=== PATIENT | female | born 1945 | race Caucasian/White ===

== ENCOUNTER 2016-11-22 16:27 | Observation (INO) ==
[2016-11-22] MEDS ORDERED: 0.9 % Sodium Chloride 1,000 ML IVC ONE (16:29)
[2016-11-22] MEDS ORDERED: Ondansetron 4 MG/2 ML VIAL IV STA (16:29)
[2016-11-22 16:59] LABS: Basophils % 0.2 %; Eosinophils % 0.5 %; Hematocrit 33.7 % (35.3-44.9); Hemoglobin 10.8 g/dL (11.5-15.4); Immature Granulocytes % 0.2 % (0-4); Lymphocytes # 0.5 K/mcL (0.6-4.6); Lymphocytes % 8.8 %; Mean Corpuscular Hemoglobin 29.3 pg (28.0-33.3); Mean Corpuscular Volume 91.3 fL (83.0-100.0); Mean Platelet Volume 10.1 fL (9.4-12.4); Monocytes # 0.4 K/mcL (0.0-1.3); Monocytes % 6.8 %; Neutrophils # 4.6 K/mcL (1.6-8.9); Platelet Count 201 K/mcL (140-400); Red Blood Count 3.69 M/mcL (3.82-4.97); Red Cell Distribution Width 13.6 % (11.5-14.5); Segmented Neutrophils % 83.5 %
--- NOTE | 2016-11-22 17:01 | Emergency Department Note ---
Disposition Clinical Impression: Gastroenteritis Disposition: Admitted As Inpatient Condition: Fair Referrals: NO,PCP [Primary Care Provider] - Forms: ED Satisfaction Letter Time of Disposition: 19:41 ([facility]) Nausea/Vomiting/Diarrhea HPI - General Chief complaint: ED Nausea/Vomiting/Diarrhea Stated complaint: Vomiting and diarrhea Time Seen by Provider: 11/22/16 16:29 Source: patient Mode of arrival: ambulatory Limitations: no limitations Nursing Notes Reviewed: Yes Vital Signs Reviewed: Yes - History of Present Illness HPI Narrative: Elderly female sent from a local urgent care acute gastroenteritis possible dehydration patient's been unable to keep anything down for the past day she has not taken her medications in the past couple days patient tells me she has nausea vomiting diarrhea weakness feels that she has been That she denies no blurred vision double vision or loss vision she denies any chest pain chest pressure palpitations patient admits she is diabetic and has not been eating patient tells me she has has history of hypertension patient states she had 15-20 diarrheal stools just within the past 24 hours and she has been sent to the urgent care for dehydration from her family physician who had a rotator cuff patient states that she is having no abdominal pain or discomfort she denies any nausea at this present time she had nausea and vomiting earlier patient states that she has not been medicated hematemesis she denies any blurred vision double vision loss she said nothing seems to relieve her discomfort patient has a call us. Objective patient has a history of stage IV renal failure kidney function 20% diabetes and cardiac history as well as hyperlipidemia and high cholesterol; coronary artery bypass graft pacemaker placement cholecystectomy and endoscopic surgery hysterectomy stent placement in I smoking or alcohol as result patient was not feeling any better after evaluated the urgent care sent to the ER for evaluation Pt Subjective Complaint: nausea, vomiting, diarrhea Onset (ago): day(s) (2) Description of emesis: watery Number of episodes of emesis: 3 Description of Diarrhea: water, mucous Number of episodes: 20 Associated Abdominal Pain: Yes (cramping) Severity: none Severity scale (1-10): 0 Quality: cramping Consistency: intermittent Improves with: nothing Worsens with: vomiting, movement Associated symptoms: Reports: myalgias, loss of appetite, malaise, nausea/ vomiting, weakness. Denies: chest pain, cough, diaphoresis, fever/chills, headaches, dysuria, shortness of breath, syncope - Related Data Home Medications Medication Instructions Recorded Confirmed Aspirin [Ecotrin] 325 mg PO DAILY 11/22/16 11/22/16 Atorvastatin [Lipitor] 80 mg PO HS 11/22/16 11/22/16 Biotin 1,000 mcg PO BID 11/22/16 11/22/16 Cholecalciferol (Vitamin D3) 1,000 unit PO 1-3XD 11/22/16 11/22/16 [Vitamin D] Clopidogrel [Plavix] 75 mg PO DAILY 11/22/16 11/22/16 Fenofibrate 150 mg PO DAILY 11/22/16 11/22/16 Furosemide [Lasix] 40 mg PO BID 11/22/16 11/22/16 Gabapentin 300 mg PO DAILY 11/22/16 11/22/16 HydrALAZINE 50 mg PO BID 11/22/16 11/22/16 Hyoscyamine 0.125 mg PO PRN PRN 11/22/16 11/22/16 Insulin ASPART [Novolog] 0 unit SQ [facility] 11/22/16 11/22/16 Insulin Glargine [Lantus] 50 unit SQ HS 11/22/16 11/22/16 Iron 65 mg PO DAILY 11/22/16 11/22/16 Isosorbide DInitrate [Isosorbide 20 mg PO 1-2XD 11/22/16 11/22/16 Dinitrate] Lisinopril [Zestril] 30 mg PO DAILY 11/22/16 11/22/16 Mecobalamin [B-12] 1,000 mcg PO DAILY 11/22/16 11/22/16 Metoprolol 100 mg PO DAILY 11/22/16 11/22/16 Ranitidine HCl 150 mg PO 1-2XD 11/22/16 11/22/16 Saxagliptin HCl [Onglyza] 5 mg PO DAILY 11/22/16 11/22/16 Vitamin E 400 unit PO DAILY 11/22/16 11/22/16 Allergies Allergy/AdvReac Type Severity Reaction Status Date / Time olmesartan [From Benicar] Allergy Mild Gastrointestinal Verified 11/22/16 17:04 Upset Labetalol Allergy Gastrointestinal Verified 11/22/16 17:04 Upset All systems ED: reviewed and negative except as stated. Constitutional: Reports: weakness. Denies: fever, chills Eyes: Denies: vision change ENT ED: Denies: ear pain, throat pain Cardiovascular: Denies: chest pain, palpitations Respiratory: Denies: cough, dyspnea Gastrointestinal: Reports: abdominal pain, nausea, vomiting, diarrhea Genitourinary: Denies: urgency, dysuria Musculoskeletal: Denies: back pain Integumentary: Denies: abrasion Neurological: Denies: headache Psychiatric: Denies: anxiety Endocrine: Reports: fatigue Hematological/Lymphatic: Denies: easy bleeding Allergic/Immunologic: Denies: facial swelling Past Medical History - Past Medical History Attestation: Yes The following information was validated with the patient. Source: patient, old records reviewed, nursing notes reviewed Medical history: Reports: diabetes, hypertension, other Psychiatric history: Reports: no psych history - Social History Smoking Status: Never smoker Smokeless Tobacco Status: No Alcohol use: Reports: none Drug use: Reports: none Physical Exam - General Limitations: no limitations General appearance: alert, in no apparent distress, lethargic (ashen slight juandice hue) - Head Head exam: atraumatic, normocephalic, normal inspection - Eye Eye exam: Present: normal appearance, PERRL, EOMI - ENT ENT exam: normal exam, normal oropharynx, mucous membranes dry, normal external ear exam - Neck Neck exam: Present: normal inspection, full ROM, trachea midline - Chest Chest inspection: Present: normal inspection, symmetric chest wall rise - Respiratory Respiratory exam: Present: normal lung sounds bilaterally - Cardiovascular Cardiovascular exam: Present: regular rate, normal rhythm, normal heart sounds - Abdominal Exam Abdominal exam: Present: soft, Non-Tender, distention, hyperactive bowel sounds - Extremities Exam Extremities exam: Present: normal inspection, full ROM, normal capillary refill. Absent: pedal edema - Expanded Lower Extremity Exam Neurovascular/Tendon exam: Present: normal capillary refill, normal fine/light touch Gait: observed and normal - Back Exam Back exam: Present: normal inspection, full ROM. Absent: muscle spasm - Neurological Exam Neurological exam: Present: alert, oriented X3, CN II-XII intact - Psychiatric Psychiatric exam: Present: flat affect - Skin Skin exam: Present: warm, dry, intact, normal color Course Course Narrative: Agency examine patient was given IV fluids she did seem to feel a little bit better after the IV fluids blood pressure was 212/63 was given Catapres she states she was feeling better blood pressure. vs 233/58 patient was given an additional dose of Catapres Vital Signs Temperature 99.0 F 11/22/16 16:30 Pulse Rate 72 11/22/16 16:30 Respiratory Rate 18 11/22/16 16:30 Blood Pressure 194/63 11/22/16 16:30 O2 Sat by Pulse Oximetry 96 11/22/16 16:30 Temperature 99.0 F 11/22/16 16:36 Pulse Rate 72 11/22/16 16:36 Respiratory Rate 18 11/22/16 16:36 Blood Pressure 194/63 11/22/16 16:36 O2 Sat by Pulse Oximetry 96 11/22/16 16:36 Oxygen Delivery Oxygen Delivery Room Air Nausea/Vomiting/Diarrhea - MDM Narrative Medical decision making narrative: htn lillness and weakness due to dehydration pt noncompliant forthe past few days not willie her meds - Differential Diagnosis Likely: gastroenteritis - Medical Records Medical records reviewed: Yes I reviewed the patient's medical records. - Lab Data Lab results reviewed: Yes I reviewed the patient's lab results. Result diagrams: 11/22/16 16:51 11/22/16 16:51 Lab Results 11/22/16 11/22/16 11/22/16 Range/Units 16:29 16:51 16:51 WBC 5.6 (4.3-11.1) K/mcL RBC 3.69 L (3.82-4.97) M/mcL Hgb 10.8 L (11.5-15.4) g/dL Hct 33.7 L (35.3-44.9) % MCV 91.3 (83.0-100.0) fL MCH 29.3 (28.0-33.3) pg MCHC 32.0 (31.6-35.5) g/dL RDW 13.6 (11.5-14.5) % Plt Count 201 (140-400) K/mcL MPV 10.1 (9.4-12.4) fL Immature Gran % 0.2 (0-4) % Seg Neutrophils % 83.5 % Lymphocytes % 8.8 % Monocytes % 6.8 % Eosinophils % 0.5 % Basophils % 0.2 % Neutrophils # 4.6 (1.6-8.9) K/mcL Lymphocytes # 0.5 L (0.6-4.6) K/mcL Monocytes # 0.4 (0.0-1.3) K/mcL Eosinophils # 0.0 (0.0-0.6) K/mcL Basophils # 0.0 (0.0-0.2) K/mcL Sodium 140 (136-145) mEq/L Potassium 4.3 (3.5-4.5) mEq/L Chloride 107 (98-109) mEq/L Carbon Dioxide 21 (19-29) mEq/L BUN 46 H (7-20) mg/dL Creatinine 2.31 H (0.57-1.11) mg/dL Est GFR ( Amer) 25 L (> 60) Est GFR (Non-Af Amer) 21 L (> 60) BUN/Creatinine Ratio 20 (6-26) Glucose 118 H (70-99) mg/dL Calculated Osmolality 303 H (280-300) Calcium 9.1 (8.6-10.8) mg/dL Total Bilirubin 0.5 (0.2-1.2) mg/dL AST 51 H (5-34) Units/L ALT 24 (0-55) Units/L Alkaline Phosphatase 32 L (38-126) Units/L Serum Total Protein 6.9 (6.0-8.3) g/dL Albumin 3.1 L (3.5-5.0) g/dL Globulin 3.8 H (2.4-3.5) g/dL Albumin/Globulin Ratio 0.8 L (1.1-2.2) Urine Color Yellow (Yellow) Urine Clarity Clear (Clear) Urine pH 5.5 (5.0-8.0) pH Units Ur Specific [place] 1.025 (1.010-1.025) Urine Protein >=300 H (Neg-Trace) mg/dL Urine Glucose (UA) 100 H (Normal) mg/dL Urine Ketones Trace H (Negative) mg/dL Urine Blood Moderate H (Negative) Urine Nitrite Negative (Negative) Urine Bilirubin Small H (Negative) Urine Urobilinogen Normal (Normal) mg/dL Ur Leukocyte Esterase Negative (Negative) Urine Microscopic RBC 3-5 H (0-3) per hpf Urine Microscopic WBC Test Not Performed Urine Mucus Few (Few) Ur Culture Indicated? NO (NO) - EKG Data EKG attestation: Yes I reviewed and interpreted this EKG. EKG results narrative: Pacemaker right bundle-branch block nonspecific T-wave rate 16 DC-2 11 Curasol 46 QT 44 axis -43 Critical Care Time Critical Care Time: Yes Total Critical Care Time: 25 Attestation: Critical care performed:25 units as a result of the hypertensive episode which put her in the hypertensive crisis and her risk for potential risk of end organ damage she is already showing evidence of kidney damage from her chronic renal failure concerns her is that she developed stroke or infarction as result of the significant hypertensive episode patient was given medications for her blood pressure billable procedures. Time includes: direct patient care, patient reassessment, coordination of patient care, interpretation of data (laboratory data, radiology data, and respiratory data), review of patient's medical records, medical consultation and documentation of patient care. Procedures included in critical care time: Procedures excluded from critical care time:
[2016-11-22 17:15] LABS: Albumin 3.1 g/dL (3.5-5.0); Albumin/Globulin Ratio 0.8 (1.1-2.2); Bilirubin,Total 0.5 mg/dL (0.2-1.2); Calcium 9.1 mg/dL (8.6-10.8); Globulin 3.8 g/dL (2.4-3.5); Potassium 4.3 mEq/L (3.5-4.5); Total Protein 6.9 g/dL (6.0-8.3)
[2016-11-22 18:23] LABS: Bilirubin,Urine Small (Negative); Blood,Urine Moderate (Negative); Clarity,Urine Clear (Clear); Color,Urine Yellow (Yellow); Glucose,Urine (UA) 100 mg/dL (Normal); Ketones,Urine Trace mg/dL (Negative); Leukocyte Esterase,Urine Negative (Negative); Nitrite,Urine Negative (Negative); PH,Urine 5.5 pH Units (5.0-8.0); Protein,Urine >=300 mg/dL (Neg-Trace); Specific Gravity,Urine 1.025 (1.010-1.025); Urobilinogen,Urine Normal (Normal)
[2016-11-22 18:29] LABS: Mucus,Urine Few (Few)
[2016-11-22] MEDS ORDERED: Nitroglycerin 1 INCH/GM PACKET TP ONE (20:04)
[2016-11-22] MEDS ORDERED: (Biotin [Biotin] 1,000 MCG) PO SCH (21:17)
[2016-11-22] MEDS ORDERED: *HR* Dextrose 50 % in Water (Syg) 50 ML SYRINGE IVP PRN (21:17)
[2016-11-22] MEDS ORDERED: Naloxone 0.4 MG/ML INJ IVP PRN (21:17)
[2016-11-22] MEDS ORDERED: Cholecalciferol (D-3) 1,000 UNIT TABLET PO SCH (21:17)
[2016-11-22] MEDS ORDERED: Dextrose Gel 15 GM PO PRN ×2 (21:17)
[2016-11-22] MEDS ORDERED: NON-FORMULARY MEDICATION 1 EACH EACH (Insulin Glargine [Lantus] 50 UNIT) SQ SCH (21:17)
[2016-11-22] MEDS ORDERED: Hyoscyamine SL 0.125 MG TAB.SUBL PO PRN (21:17)
[2016-11-22] MEDS ORDERED: Acetaminophen 325 MG TABLET PO PRN (21:17)
[2016-11-22] MEDS ORDERED: Ondansetron 4 MG/2 ML VIAL IVP PRN (21:17)
[2016-11-22] MEDS ORDERED: D5% in Water 1,000 ML IV PRN (21:17)
[2016-11-22] MEDS: 0.9 % Sodium Chloride 1,000 ML IVC SCH (22:14)
[2016-11-23] MEDS: 0.9 % Sodium Chloride 1,000 ML IVC SCH (05:40)
[2016-11-23] MEDS ORDERED: Famotidine 20 MG/2 ML VIAL IVP SCH (06:00)
[2016-11-23 06:33] LABS: Basophils % 0.6 %; Eosinophils # 0.1 K/mcL (0.0-0.6); Eosinophils % 3.9 %; Hematocrit 25.5 % (35.3-44.9); Immature Granulocytes % 0.3 % (0-4); Lymphocytes # 0.4 K/mcL (0.6-4.6); Lymphocytes % 13.3 %; Mean Corpuscular HGB Conc 31.4 g/dL (31.6-35.5); Mean Corpuscular Hemoglobin 28.7 pg (28.0-33.3); Mean Corpuscular Volume 91.4 fL (83.0-100.0); Monocytes # 0.3 K/mcL (0.0-1.3); Monocytes % 10.4 %; Neutrophils # 2.2 K/mcL (1.6-8.9); Platelet Count 137 K/mcL (140-400); Red Blood Count 2.79 M/mcL (3.82-4.97); Red Cell Distribution Width 13.6 % (11.5-14.5); Segmented Neutrophils % 71.5 %
[2016-11-23 06:49] LABS: INR 1.2; Prothrombin Time 12.8 Seconds (9.4-12.1)
[2016-11-23 06:52] LABS: Activated Partial Thrombo Time 27.1 Seconds (26.0-36.0)
[2016-11-23 07:17] LABS: Calcium 7.8 mg/dL (8.6-10.8); Potassium 4.3 mEq/L (3.5-4.5)
[2016-11-23] MEDS: Insulin LISPRO 300 UNITS/3 ML VIAL SQ SCH ×3 (08:01→16:57)
[2016-11-23] MEDS ORDERED: (Saxagliptin Hcl [Onglyza] 5 MG) PO SCH (09:00)
[2016-11-23] MEDS ORDERED: Famotidine 20 MG TABLET PO SCH (09:00)
[2016-11-23] MEDS: Aspirin Enteric Coated 325 MG Tablet PO SCH (09:58)
[2016-11-23] MEDS: Gabapentin 300 MG CAPSULE PO SCH (09:59)
[2016-11-23] MEDS: Fenofibrate 54 MG TABLET PO SCH (10:00)
[2016-11-23] MEDS: Cyanocobalamin (B-12) 1,000 MCG TABLET PO SCH (10:00)
--- NOTE | 2016-11-23 12:00 | Internal Med History&Physical ---
Date of Encounter: 11/23/16 Time of Encounter: 11:30 Assessment and Plan (1) Gastroenteritis Current visit: Yes Status: Acute She will be given IV fluids and antiemetics as needed. Diet will be advanced as tolerated. (2) CKD (chronic kidney disease) stage 4, GFR 15-29 ml/min Current visit: Yes Status: Chronic We will monitor renal indices. (3) DM type 2 (diabetes mellitus, type 2) Current visit: Yes Status: Chronic Continue Onglyza, Lantus/Levemir, and do Accu-Cheks with SSI. Qualifiers: Diabetes mellitus complication status: with kidney complications Diabetes mellitus complication detail: with chronic kidney disease Diabetes mellitus manager intermediate insulin use: with manager intermediate use Chronic kidney disease stage: stage 4 (severe) Qualified Code(s): E11.22 - Type 2 diabetes mellitus with diabetic chronic kidney disease; N18.4 - Chronic kidney disease, stage 4 (severe); Z79.4 - termite control service representative (current) use of insulin (4) Anemia Current visit: Yes Status: Acute We will order anemia testing in a.m. Qualifiers: Anemia type: unspecified type Qualified Code(s): D64.9 - Anemia, unspecified (5) Hypertension Current visit: Yes Status: Acute Continue Lopressor, lisinopril, and hydralazine. We will monitor blood pressures and adjust dose as needed. Qualifiers: Hypertension type: essential hypertension Qualified Code(s): I10 - Essential (primary) hypertension Internal Medicine - H&P: HPI Chief complaint: Vomiting and diarrhea Admitted From: Home Plans for Post Hospital Care: Home History of present illness: Ms. Grant is a 71 year old female who came to emergency room stating she had onset of vomiting and diarrhea the previous day. She reports at least 5 episodes of vomiting and 20 episodes of diarrhea. She also felt she was running a low-grade fever. She was evaluated in the emergency room felt to have acute gastroenteritis. She was admitted to [facility] for ongoing care needs. She states she has had no further vomiting since coming to [facility]. She still has loose stools and feels weak overall. She denies melena or hematochezia. She thinks she has had pancreatitis in the past. She states she has had several episodes of colitis requiring hospitalization. She had cholecystectomy in 1990. She has GERD. She denies disorders of her liver or exocrine pancreas otherwise. Past Med Surg Social Fam HX - Past Medical History Medical history: diabetes, hypertension, other Psychiatric history: no psych history - Past Surgical History Surgical History: coronary bypass (CABG), hysterectomy, pacemaker/AICD - Social History Smoking Status: Never smoker Smokeless Tobacco Status: No Alcohol use: none Drug use: none - Family History Mother Hx Family Cardiac Disorders: Yes (hypertension) Internal Medicine - H&P: Meds Aspirin [Ecotrin] 325 mg PO DAILY 11/22/16 [History] Atorvastatin [Lipitor] 80 mg PO HS 11/22/16 [History] Biotin 1,000 mcg PO BID 11/22/16 [History] Cholecalciferol (Vitamin D3) [Vitamin D] 1,000 unit PO 1-3XD 11/22/16 [History] Clopidogrel [Plavix] 75 mg PO DAILY 11/22/16 [History] Fenofibrate 150 mg PO DAILY 11/22/16 [History] Furosemide [Lasix] 40 mg PO BID 11/22/16 [History] Gabapentin 300 mg PO DAILY 11/22/16 [History] HydrALAZINE 50 mg PO BID 11/22/16 [History] Hyoscyamine 0.125 mg PO Q8H PRN 11/22/16 [History] Insulin ASPART [Novolog] 0 unit SQ ACHS 11/22/16 [History] Insulin Glargine [Lantus] 50 unit SQ HS 11/22/16 [History] Iron 65 mg PO DAILY 11/22/16 [History] Isosorbide DInitrate [Isosorbide Dinitrate] 20 mg PO DAILY 11/22/16 [History] Lisinopril [Zestril] 30 mg PO DAILY 11/22/16 [History] Mecobalamin [B-12] 1,000 mcg PO DAILY 11/22/16 [History] Metoprolol 100 mg PO DAILY 11/22/16 [History] Ranitidine HCl 150 mg PO 1-2XD 11/22/16 [History] Saxagliptin HCl [Onglyza] 5 mg PO DAILY 11/22/16 [History] Vitamin E 400 unit PO DAILY 11/22/16 [History] Allergies olmesartan [From Benicar] Allergy (Mild, Verified 11/22/16 17:04) Gastrointestinal Upset Labetalol Allergy (Verified 11/22/16 17:04) Gastrointestinal Upset All Systems PM: A 10-system review of systems was performed and is negative for pertinent findings except as documented above in the HPI. Review of systems: Gen.: She states her weight has been stable the past few months Cardiovascular: She has history of hypertension. She has known ASHD status post three-vessel CABG in 1993. She states she had a nonexercise stress test approximately one week ago which did not show ischemia. She denies heart failure DVT or pulmonary embolus. She states she does occasionally get chest pain on exertion. Respiratory: She is essentially a lifelong nonsmoker and has no known chronic lung disease GI: As per history of present illness : She has CKD stage IV and follows with a [facility] vat cleaner. She denies other kidney or bladder disorders. Neurologic: She denies large distribution strokes or seizures. Endocrine: She was diagnosed with DM 2 in 1988. She has hyperlipidemia but denies thyroid disease. 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 She denies other bone joint or muscle disorders. - Constitutional Vitals: Temp Pulse Resp BP Pulse Ox 98.3 F 60 16 235/80 97 11/23/16 10:43 11/23/16 10:43 11/23/16 10:43 11/23/16 10:43 11/23/16 10:43 Exam: Gen.: She is a well-developed well-nourished female who appears in minimal distress at present time. HEENT: Head is atraumatic and normocephalic. Eyes: EOMI. There is no scleral icterus. Mouth: Mucosa is moist. Neck: Supple and nontender. There is no thyromegaly or adenopathy noted. Heart: Regular without murmurs gallops or ectopics. Lungs: No wheezes or crackles are heard. Abdomen: Bowel sounds are diminished. There is mild tenderness to moderate palpation in the left lower abdominal area. No masses or guarding are noted. Extremities: There is no cyanosis edema or clubbing noted. Dorsalis pedis and posttibial pulses are trace palpable bilaterally. She has a well-healed surgical scar in her left upper inner leg from CABG vein graft harvesting. 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 Neurologic: Mental status: She is talkative and a good historian. Cranial nerves: Smile is symmetric. Forehead wrinkles bilaterally. Tongue protrudes midline. EOMI. Motor: There is no pronator drift. Cerebellar: Finger to nose is intact bilaterally. Skin: Warm and dry Internal Med - H&P Results - Labs CBC & Chem 7: 11/23/16 06:24 11/23/16 06:24 Labs: Short CBC 11/23/16 Range/Units 06:24 WBC 3.1 L (4.3-11.1) K/mcL Hgb 8.0 L D (11.5-15.4) g/dL Hct 25.5 L (35.3-44.9) % Plt Count 137 L (140-400) K/mcL Neutrophils # 2.2 (1.6-8.9) K/mcL BMP 11/23/16 06:24 Sodium 141 Potassium 4.3 Chloride 114 H Carbon Dioxide 20 BUN 42 H Creatinine 1.68 H Glucose 132 H Calcium 7.8 L Cardiac Enzymes 11/23/16 Range/Units 06:24 Troponin I 0.05 H* (0-0.03) ng/mL
[2016-11-23] MEDS ORDERED: Lisinopril 20 MG TABLET PO SCH (12:12)
[2016-11-23] MEDS ORDERED: Insulin DETEMIR 100 UNIT/ML X5UNITS SQ SCH (21:00)
[2016-11-23] MEDS ORDERED: Insulin DETEMIR 100 UNIT/ML per UNIT SQ ONE (21:20)
[2016-11-24 07:43] LABS: Basophils % 0.7 %; Eosinophils # 0.2 K/mcL (0.0-0.6); Eosinophils % 5.7 %; Hemoglobin 8.4 g/dL (11.5-15.4); Lymphocytes # 0.5 K/mcL (0.6-4.6); Lymphocytes % 18.1 %; Mean Corpuscular HGB Conc 32.3 g/dL (31.6-35.5); Mean Corpuscular Hemoglobin 29.1 pg (28.0-33.3); Mean Platelet Volume 9.7 fL (9.4-12.4); Monocytes # 0.3 K/mcL (0.0-1.3); Monocytes % 11.4 %; Neutrophils # 1.9 K/mcL (1.6-8.9); Platelet Count 127 K/mcL (140-400); Red Blood Count 2.89 M/mcL (3.82-4.97); Red Cell Distribution Width 13.2 % (11.5-14.5); Segmented Neutrophils % 64.1 %
[2016-11-24] MEDS: Insulin LISPRO 300 UNITS/3 ML VIAL SQ SCH ×2 (07:55→13:23)
[2016-11-24] MEDS ORDERED: (Saxagliptin Hcl [Onglyza] 5 MG) PO SCH (08:00)
[2016-11-24] MEDS: Gabapentin 300 MG CAPSULE PO SCH (08:04)
[2016-11-24] MEDS: Aspirin Enteric Coated 325 MG Tablet PO SCH (08:04)
[2016-11-24] MEDS: Cyanocobalamin (B-12) 1,000 MCG TABLET PO SCH (08:06)
[2016-11-24] MEDS: Fenofibrate 54 MG TABLET PO SCH (08:07)
[2016-11-24 08:10] LABS: Potassium 4.1 mEq/L (3.5-4.5)
[2016-11-24] MEDS ORDERED: Famotidine 20 MG TABLET PO SCH (09:00)
[2016-11-24] MEDS ORDERED: Cholecalciferol (D-3) 1,000 UNIT TABLET PO SCH (09:00)
[2016-11-24 11:26] VITALS: BP 187/61
[2016-11-24] MEDS ORDERED: *HR* Dextrose 50 % in Water (Syg) 50 ML SYRINGE IVP PRN (13:51)
[2016-11-24] MEDS ORDERED: Dextrose Gel 15 GM PO PRN (13:51)
[2016-11-24] MEDS ORDERED: D5% in Water 1,000 ML IV PRN (13:51)
[2016-11-24 14:47] LABS: Folate 7.3 ng/mL (7.0-31.4)
[2016-11-24 15:08] LABS: Vitamin B12 > 2000 pg/mL (213-816)
--- NOTE | 2016-11-24 15:09 | Electrocardiograph Report ---
[address] [place], [place] [address] Test Date: 2016-11-22 Pat Name: Juliane Grant Department: [id number] Room: [facility] Gender: F Operations Examiner: : 1945 Requested By: Laura Mendez Order Number: [id number] Reading MD: Yajaira Weaver Measurements Intervals Cade Rate: 60 P: 248 WV: 211 QRS: -43 QRSD: 146 T: -3 QT: 484 QTc: 484 Interpretive Statements ELECTRONIC ATRIAL PACEMAKER MARKED LEFT AXIS DEVIATION RIGHT BUNDLE BRANCH BLOCK MODERATE T-WAVE ABNORMALITY, CONSIDER LATERAL ISCHEMIA Electronically Signed On 11-24-2016 15:08:04 EST by Yajaira Weaver
--- NOTE | 2016-11-24 15:25 | Discharge Summary ---
Date of Encounter: 11/24/16 Time of Encounter: 15:12 - Discharge Diagnosis (1) Gastroenteritis Priority: Primary Status: Resolved (2) CKD (chronic kidney disease) stage 4, GFR 15-29 ml/min Priority: Secondary Status: Chronic (3) DM type 2 (diabetes mellitus, type 2) Priority: Secondary Status: Chronic Qualifiers: Diabetes mellitus complication status: with kidney complications Diabetes mellitus complication detail: with chronic kidney disease Diabetes mellitus terminal carman insulin use: with terminal carman use Chronic kidney disease stage: stage 4 (severe) Qualified Code(s): E11.22 - Type 2 diabetes mellitus with diabetic chronic kidney disease; N18.4 - Chronic kidney disease, stage 4 (severe); 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 of insulin (4) Anemia Priority: Secondary Status: Chronic Qualifiers: Anemia type: unspecified type Qualified Code(s): D64.9 - Anemia, unspecified (5) Hypertension Priority: Secondary Status: Chronic Qualifiers: Hypertension type: essential hypertension Qualified Code(s): I10 - Essential (primary) hypertension - Discharge Medications Prescriptions: Amlodipine [Norvasc] 5 mg PO DAILY #30 tablet HydrALAZINE 50 mg PO Q8H #90 tablet Lisinopril [Zestril] 40 mg PO DAILY #60 tablet Home Medications: Aspirin [Ecotrin] 325 mg PO DAILY 11/22/16 [History] Atorvastatin [Lipitor] 80 mg PO HS 11/22/16 [History] Biotin 1,000 mcg PO BID 11/22/16 [History] Cholecalciferol (Vitamin D3) [Vitamin D3] 1,000 unit PO 1-3XD 11/22/16 [History] Clopidogrel [Plavix] 75 mg PO DAILY 11/22/16 [History] Fenofibrate 150 mg PO DAILY 11/22/16 [History] Gabapentin 300 mg PO DAILY 11/22/16 [History] Hyoscyamine 0.125 mg PO Q8H PRN 11/22/16 [History] Insulin ASPART [Novolog] 0 unit SQ ACHS 11/22/16 [History] Insulin Glargine [Lantus] 50 unit SQ HS 11/22/16 [History] Iron 65 mg PO DAILY 11/22/16 [History] Isosorbide DInitrate [Isosorbide Dinitrate] 20 mg PO DAILY 11/22/16 [History] Mecobalamin [B-12] 1,000 mcg PO DAILY 11/22/16 [History] Metoprolol 100 mg PO DAILY 11/22/16 [History] Ranitidine HCl 150 mg PO 1-2XD 11/22/16 [History] Saxagliptin HCl [Onglyza] 5 mg PO DAILY 11/22/16 [History] Vitamin E 400 unit PO DAILY 11/22/16 [History] Amlodipine [Norvasc] 5 mg PO DAILY #30 tablet 11/24/16 [Rx] Furosemide [Lasix] 20 mg PO DAILY 365 Days 11/24/16 [Rx] HydrALAZINE 50 mg PO Q8H #90 tablet 11/24/16 [Rx] Lisinopril [Zestril] 40 mg PO DAILY #60 tablet 11/24/16 [Rx] Allergies/Adverse Reactions: Allergies olmesartan [From Benicar] Allergy (Mild, Verified 11/22/16 17:04) Gastrointestinal Upset Labetalol Allergy (Verified 11/22/16 17:04) Gastrointestinal Upset Date of admission: 11/22/16 19:54 Primary care physician: Dr. Katlyn Potter - Patient Status Disposition: Home, Self-Care Condition: Fair Overall status at discharge: patient is progressing back to baseline - Discharge Instructions Follow Up With: NO,PCP [Primary Care Provider] - 1 week - Diet and Activity Activity: resume usual activities as tolerated Diet: advance to your usual diet Hospital course: Ms. Grant is a 71 year old female who came to emergency room stating she had onset of vomiting and diarrhea the previous day. She reports at least 5 episodes of vomiting and 20 episodes of diarrhea. She also felt she was running a low-grade fever. She was evaluated in the emergency room felt to have acute gastroenteritis. She was admitted to [facility] for ongoing care needs. Initial orders were written by the emergency room physician. I saw her on November 23 and performed the history and physical. She was given IV fluids and prn antiemetics. Her vomiting and diarrhea had resolved by the time I saw her on November 24. She was tolerating oral diet without difficulty. She wished to be discharged which I felt was reasonable. She will follow with her primary care provider within one week. She was given IV fluids and her Lasix was held. Her azotemia improved with BUN/ creatinine being 33 and 1.31 respectively on the day of discharge. I will decrease her Lasix dose to 20 mg daily. Anemia testing showed iron 25, transferrin saturation 10%, ferritin 110, B12 greater than 2000, and folate 7.3. She will continue oral ferrous sulfate. Her blood pressures were generally above desirable range. Her hydralazine dose was increased to 100 mg every 8 hours. She was also started on Norvasc. Lisinopril was increased to 40 mg daily. She will continue metoprolol as at home. I will let her primary care provider continue to monitor her blood pressure. - Time Spent with Patient Total time spent providing and/or coordinating discharge services: - Constitutional Vitals: Temp Pulse Resp BP Pulse Ox 98.2 F 60 16 187/61 96 11/24/16 11:00 11/24/16 11:00 11/24/16 11:00 11/24/16 11:00 11/24/16 11:00
[2016-11-24] MEDS ORDERED: Insulin LISPRO 300 UNITS/3 ML VIAL SQ SCH (21:00)
== END 2016-11-24 17:17 | disposition home or self-care (01) ==
LOC: EMEROOPIK 16:27 → INPPIK 16:27
PROVIDERS: ADMIT Internal Medicine; ATTEND Internal Medicine